=== PATIENT | female | born 1990 | race African-American/Black ===

== ENCOUNTER 2019-06-01 00:42 | Inpatient (IN) | payer OTHER ==
[2019-06-01 01:14] VITALS: BMI 28.4
[2019-06-01] MEDS ORDERED: hydrALAZINE 20 MG/ML VIAL SLOW IVP PRN ×2 (02:41→05:59)
[2019-06-01] MEDS ORDERED: Butorphanol Tartrate 1 MG/ML VIAL SLOW IVP PRN (02:41)
[2019-06-01] MEDS ORDERED: Promethazine HCl 25 MG/ML VIAL IM PRN ×2 (02:41→04:22)
[2019-06-01] MEDS ORDERED: Ondansetron PF 4 MG/2 ML Vial IVP PRN ×2 (02:41→04:22)
[2019-06-01] MEDS ORDERED: Acetaminophen 500 MG TAB PO PRN (02:41)
[2019-06-01] MEDS ORDERED: Lactated Ringer's 1,000 ML IV SCH (02:45)
[2019-06-01] MEDS ORDERED: CEFAZOLIN 2 GM in Premix Bag 1 BAG IVPB SCH (02:45)
[2019-06-01] MEDS ORDERED: Bicitra 30 ML UDCUP PO SCH (02:45)
[2019-06-01] MEDS ORDERED: Bicitra 30 ML UDCUP ONE (02:48)
[2019-06-01 02:53] LABS: Hemoglobin 12.2 g/dL (12.0-16.0); Mean Corpuscular HGB CONC 33.7 g/dL (32.0-36.0); Mean Corpuscular Hemoglobin 31.5 pg (27.0-31.0); Mean Corpuscular Volume 93.5 fL (78.0-98.0); Mean Platelet Volume 10.2 fL (7.4-10.4); Platelet Count 158 thou/uL (130-400); Red Blood Cell (RBC) Count 3.86 mill/uL (4.20-5.40); White Blood Cell (WBC) Count 9.1 thou/uL (4.8-10.8)
[2019-06-01] MEDS ORDERED: Dexamethasone 4 mg/ml Vial ONE (03:12)
[2019-06-01] MEDS ORDERED: Oxytocin 10 UNITS/ML VIAL ONE ×2 (03:12→03:59)
[2019-06-01] MEDS ORDERED: Ondansetron PF 4 MG/2 ML Vial ONE (03:12)
[2019-06-01] MEDS ORDERED: MORPHINE 5 MG/10 ML PF VIAL ONE (03:12)
[2019-06-01] MEDS ORDERED: PHENYLEPHRINE-NS 100 MCG/ML 10 ML SYRINGE ONE (03:12)
[2019-06-01] MEDS ORDERED: ePHEDrine/0.9% NaCl/PF SYRINGE 50 mg/10 ml ONE (03:28)
[2019-06-01 03:32] LABS: HBSAg Index 0.16 S/CO (0-0.99); Hep B Surf Ag Non-Reactive S/CO (NonReactive)
[2019-06-01] MEDS ORDERED: HYDROmorphone 2 MG/ML VIAL SLOW IVP PRN (04:22)
[2019-06-01] MEDS ORDERED: Ondansetron HCl/PF 4 MG/2 ML Vial IVP PRN (04:22)
[2019-06-01] MEDS ORDERED: Promethazine HCl 25 MG SUPP PR PRN (04:22)
[2019-06-01] MEDS ORDERED: Naloxone HCl 0.4 mg/ml Vial IVP PRN ×2 (04:22)
[2019-06-01] MEDS ORDERED: diphenhydrAMINE 50 MG/ML VIAL IVP PRN (04:22)
[2019-06-01] MEDS ORDERED: L&D-Morphine 4 MG/ML VIAL SLOW IVP PRN (04:22)
[2019-06-01] MEDS ORDERED: Meperidine HCl/PF 25 MG/ML VIAL SLOW IVP PRN (04:22)
[2019-06-01] MEDS ORDERED: Naloxone HCl 0.4 mg/ml Vial IV PRN (04:22)
[2019-06-01] MEDS ORDERED: Ketorolac Tromethamine 30 MG/ML VIAL IVP SCH (04:30)
[2019-06-01] MEDS ORDERED: Communication Order-Pharmacy FS SCH (04:30)
[2019-06-01 04:31] LABS: Syphilis Antibody Nonreactive (Nonreactive); Syphilis Antibody Index 0.04 S/CO (<1.00 Non-Reactive)
[2019-06-01] MEDS ORDERED: Ketorolac Tromethamine 30 MG/ML VIAL ONE (05:44)
[2019-06-01] MEDS ORDERED: Lanolin Ointment 7 GM TUBE TOP PRN (05:59)
[2019-06-01] MEDS ORDERED: NS / Oxytocin 40 units/1000ml 1,000 ML IV SCH (05:59)
[2019-06-01] MEDS ORDERED: Adacel (T-DAP) 0.5 ML SYRINGE IM ONE (05:59)
[2019-06-01] MEDS ORDERED: Zolpidem Tartrate 5 MG TAB PO PRN (05:59)
[2019-06-01] MEDS ORDERED: Bisacodyl 10 MG SUPP PR PRN (05:59)
[2019-06-01] MEDS ORDERED: Acetaminophen 325 MG TAB PO PRN (05:59)
[2019-06-01] MEDS: Ibuprofen 800 MG TAB PO SCH ×2 (08:16→14:12)
[2019-06-01] MEDS ORDERED: FLU VACC QS2019-20(6MOS UP)/PF 60 MCG/0.5 ML SYRINGE IM ONE (09:00)
[2019-06-01] MEDS: Prenatal Vitamin 1 TAB PO SCH (09:15)
[2019-06-01] MEDS: Docusate Calcium (SURFAK) 240 MG CAP PO SCH ×2 (09:15→21:14)
[2019-06-01] MEDS: Ferrous Sulfate 325 MG TAB PO SCH ×2 (09:15→22:54)
--- NOTE | 2019-06-01 09:49 | OP ---
DATE OF PROCEDURE: 06/01/2019 PROCEDURE PERFORMED: Repeat low transverse section. PREOPERATIVE DIAGNOSES: 1. Labor at 38 weeks. 2. Previous section x3. [employer] TECHNICAL OFFICER: Shira Burns MD. ANESTHESIA: Spinal per Dr. Whitlock. COMPLICATIONS: None. ESTIMATED BLOOD LOSS: 500 mL. QBL: Pending. OPERATIVE FINDINGS: 1. Minimal adhesive disease. 2. Low transverse hysterotomy without extension. 3. Vigorous male infant with meconium-stained fluid noted at time of delivery. Apgars and weight pending at the time of this dictation. 4. Fundus firm after delivery of placenta. 5. Surgical site hemostatic. 6. Normal-appearing tubes and ovaries bilaterally. DESCRIPTION OF PROCEDURE: The patient was taken back to the OR with IV fluids running. When she was in the OR, spinal anesthesia was obtained. The patient was then placed in dorsal supine position with a left lateral tilt. Anesthesia was tested and found to be adequate. A Pfannenstiel skin incision was made with a scalpel. Skin incision was carried down through a thin subcutaneous layer to the fascia. Once the fascia was reached, it was extended superolaterally using curved Caputo scissors. Chance clamps were placed at the superior border of the fascia, which was sharply and bluntly dissected off the rectus abdominis tissue. The peritoneum was bluntly entered and stretched laterally. An Carlo O retractor was placed into the peritoneal cavity for retraction, visualization, and protection of the wound. A bladder flap was created and the bladder was dissected away from the planned hysterotomy site. A low-transverse hysterotomy was made with a scalpel. The hysterotomy was bluntly entered and stretched using the Sahu maneuver. Amniotomy was performed with meconium-stained fluid noted. The infant was delivered through the hysterotomy with gentle fundal pressure without difficulty. After the infant was delivered, the nose and mouth were suctioned. The cord was doubly clamped and cut. The was handed off to special care nurse in attendance. Cord blood was collected. The placenta was delivered. The uterus was exteriorized, massaged to firm, and cleared of clot and debris. The uterus was returned to the abdominal cavity. The hysterotomy was closed with Monocryl suture in a running locked fashion. An additional [id number] stitch was placed in the right corner for added hemostasis. There was an approximate 5-minute delay between the completion of the hysterotomy and irrigation and removal of the Carlo O retractor as the patient was experiencing nausea and vomiting. Once the patient was able to further tolerate manipulation of the uterus, the hysterotomy was copiously irrigated and suctioned dry. No areas of bleeding were noted. The Carlo O retractor was removed from the abdominal cavity. The rectus muscle was inspected and no areas of bleeding were noted. The fascia was then reapproximated with PDS suture in a running fashion. Subcutaneous tissue was irrigated and dry. No areas of bleeding were noted. The subcuticular layer was reapproximated with 4-0 Monocryl and dressed with Dermabond dressing. The fundus massaged to firm. The patient tolerated the procedure well. There were no complications. Job ID: [id number]
[2019-06-01] MEDS: Ketorolac Tromethamine 30 MG/ML VIAL IVP PRN ×2 (10:39→17:24)
--- NOTE | 2019-06-01 13:53 | OP ---
DATE OF PROCEDURE: 06/01/2019 ADDENDUM: I was present and scrubbed to assist the uncomplicated repeat low-transverse with Dr. Joce Kam. Please see her note for full details. Job ID: [id number]
[2019-06-01] MEDS: diphenhydrAMINE 25 MG CAP PO PRN (17:46)
[2019-06-01] MEDS: Simethicone Chewable 80 MG TAB PO PRN (21:14)
[2019-06-02] MEDS: Ibuprofen 800 MG TAB PO SCH ×4 (00:30→16:58)
[2019-06-02] MEDS: HYDROcodone/Acetaminophen 5/325 mg Tablet PO PRN ×3 (04:52→20:40)
[2019-06-02] MEDS: Simethicone Chewable 80 MG TAB PO PRN ×3 (04:52→20:40)
[2019-06-02 05:59] LABS: Hemoglobin 10.9 g/dL (12.0-16.0); Mean Corpuscular HGB CONC 33.2 g/dL (32.0-36.0); Mean Corpuscular Hemoglobin 31.2 pg (27.0-31.0); Mean Platelet Volume 9.5 fL (7.4-10.4); Platelet Count 136 thou/uL (130-400); RBC Distribution Width 13.1 % (11.5-14.5); Red Blood Cell (RBC) Count 3.48 mill/uL (4.20-5.40); White Blood Cell (WBC) Count 11.7 thou/uL (4.8-10.8)
--- NOTE | 2019-06-02 08:08 | PDOC.PP ---
Post Progress Note Post Day #: 1 Subjective: doing well, baby is latching well, min discomfort PO intake tolerated: yes Flatus: no Ambulation: yes Vital Signs (12 hours) Temp Pulse Resp BP Pulse Ox 06/02/19 04:30 98.6 F 82 20 99/55 L 97 06/02/19 02:11 18 06/02/19 00:00 98.0 F 79 18 105/58 L 06/01/19 22:00 16 Weight Weight 176 lb - Physical Examination General: NAD Cardiovascular: RRR Respiratory: non-labored breathing Abdominal: no distention Skin: CS incision dry & intact, no rash Neurological: no gross focal deficits Psychiatric: A&Ox3, normal affect Result Diagrams: 06/02/19 05:44 Additional Labs: Post Labs Blood Type B POSITIVE 06/01/19 03:05 Hep Bs Antigen Non-Reactive S/CO (NonReactive) 06/01/19 02:46 (1) Status post repeat low transverse section Code(s): Z98.891 - HISTORY OF UTERINE SCAR FROM PREVIOUS SURGERY Status: Acute (2) 38 weeks gestation of Code(s): Z3A.38 - 38 WEEKS GESTATION OF Status: Acute - Assessment/Plan POD1 sp RCS #4 after presenting in labor. Continue post op care, likely DC tomorrow.
[2019-06-02] MEDS: Prenatal Vitamin 1 TAB PO SCH (08:58)
[2019-06-02] MEDS: Docusate Calcium (SURFAK) 240 MG CAP PO SCH ×2 (08:58→20:40)
[2019-06-02] MEDS: Ferrous Sulfate 325 MG TAB PO SCH ×2 (09:05→22:19)
[2019-06-02] MEDS: diphenhydrAMINE 25 MG CAP PO PRN (10:15)
--- NOTE | 2019-06-02 20:24 | PDOC.EVN ---
Event Note - Event Note Event Note: See dictation Patient seen at bedside
[2019-06-03] MEDS: Ibuprofen 800 MG TAB PO SCH ×3 (00:46→10:05)
[2019-06-03] MEDS: HYDROcodone/Acetaminophen 5/325 mg Tablet PO PRN ×2 (05:11→12:57)
[2019-06-03 07:48] VITALS: BP 97/55; TEMP 98.5
--- NOTE | 2019-06-03 08:29 | PDOC.PP ---
Post Progress Note Post Day #: 2 Subjective: Pt doing well this morning. Baby is latching well. PT with mild soreness. She felt slight pull when getting up yesterday to right side of incision but it is improved this am. PO intake tolerated: yes Flatus: yes Ambulation: yes Vital Signs (12 hours) Temp Pulse Resp BP Pulse Ox 06/03/19 07:47 98.5 F 62 20 97/55 L 100 06/03/19 00:45 98.8 F 93 16 113/55 L Weight Weight 176 lb - Physical Examination General: NAD Respiratory: non-labored breathing Abdominal: + bowel sounds, lochia, no distention, appropriately TTP Extremities: negative homans (B) Skin: CS incision dry & intact, no rash Neurological: no gross focal deficits Psychiatric: A&Ox3, normal affect Result Diagrams: 06/02/19 05:44 Additional Labs: Post Labs Blood Type B POSITIVE 06/01/19 03:05 Hep Bs Antigen Non-Reactive S/CO (NonReactive) 06/01/19 02:46 (1) 38 weeks gestation of Code(s): Z3A.38 - 38 WEEKS GESTATION OF Status: Acute (2) Status post repeat low transverse section Code(s): Z98.891 - HISTORY OF UTERINE SCAR FROM PREVIOUS SURGERY Status: Acute - Assessment/Plan Pt doing well on PPD2. Pain well controlled. Minimal lochia. Baby latching well. Plan for discharge today. Dr. Kam has sent out prescription medications. She will follow up with out office in 6 weeks and call for any concerns.
[2019-06-03] MEDS: Docusate Calcium (SURFAK) 240 MG CAP PO SCH (09:05)
[2019-06-03] MEDS: Prenatal Vitamin 1 TAB PO SCH (09:05)
[2019-06-03] MEDS: Ferrous Sulfate 325 MG TAB PO SCH (10:01)
[2019-06-03] MEDS ORDERED: FLU VACC QS2019-20(6MOS UP)/PF 60 MCG/0.5 ML SYRINGE IM ONE (10:47)
== END 2019-06-03 13:40 | disposition home or self-care (01) | DRG 788 ==
LOC: L&D/OP 00:42 → L&D 03:06 → 3SW 06:28
PROVIDERS: ADMIT Obstetrics & Gynecology; ATTEND Obstetrics & Gynecology
PROC: 10D00Z1 Extraction of Products of Conception, Low, Open Approach (ICD-10-PCS; principal; 2019-06-01)
DX: O34.219 Maternal care for unspecified type scar from previous cesarean delivery (principal); Z37.0 Single live birth; O99.62 Diseases of the digestive system complicating childbirth; O75.82 Onset (spontaneous) of labor after 37 completed weeks of gestation but before 39 completed weeks gestation, with delivery by (planned) cesarean section; K66.0 Peritoneal adhesions (postprocedural) (postinfection); Z3A.38 38 weeks gestation of pregnancy
CPT/HCPCS: 36415; 51702; 85027; 86780; 86850; 86900; 86901; 87340; 90471; 90686; 99285; G0008; J0690; J1100; J1885; J2274; J2405; J2590; Q0163